=== PATIENT | male | born 1995 | race Caucasian/White ===

== ENCOUNTER 2016-12-19 18:28 | Inpatient (IN) | payer OTHER ==
[~2016-12-19] VITALS: Ht 170.1 cm; Wt 60.9 kg
[2016-12-19 18:34] VITALS: BP 111/70
[2016-12-19 19:38] LABS: BILIRUBIN NEGATIVE (NEGATIVE); BLOOD NEGATIVE (NEGATIVE); CLARITY CLEAR (CLEAR); COLOR YELLOW (YELLOW); GLUCOSE NEGATIVE (NEGATIVE); KETONE NEGATIVE (NEGATIVE); LEUKO ESTERASE NEGATIVE (NEGATIVE); NITRITE NEGATIVE (NEGATIVE); PROTEIN NEGATIVE (NEGATIVE); SPECIFIC GRAVITY 1.015 (1.005-1.030)
[2016-12-19 19:46] LABS: BASO % 0.2 % (0.0-1.0); EOS # 0.1 10*3/uL (0.0-0.4); EOS % 0.5 % (1.0-4.0); HEMATOCRIT 42.5 % (42.0-52.0); HEMOGLOBIN 14.4 g/dl (14.0-18.0); LYMPH # 3.4 10*3/uL (1.3-4.4); LYMPH % 25.8 % (27.0-41.0); MEAN CELL VOLUME 87.8 fl (80.0-94.0); MEAN CORPUSCULAR HGB 29.8 pg (27.0-31.0); MEAN CORPUSCULAR HGB CONC 33.9 g/dl (33.0-37.0); MEAN PLATELET VOLUME 9.1 fl (9.6-12.3); MONO # 0.7 10*3/uL (0.1-1.0); MONO % 5.7 % (3.0-9.0); NEUT # 8.8 10*3/uL (2.3-7.9); NEUT % 67.6 % (47.0-73.0); PLATELET COUNT AUTOMATED 278 10*3/uL (130-400); RED BLOOD COUNT 4.84 10*6/uL (4.50-5.90); RED CELL DISTRI WIDTH 12.5 % (0-14.5); WHITE BLOOD COUNT 13.1 10*3/uL (4.8-10.8)
[2016-12-19 20:00] VITALS: BP 120/63
[2016-12-19 20:02] LABS: ALBUMIN 3.6 gm/dl (3.1-4.5); ALKALINE PHOSPHATASE 95 U/L (45-117); BILIRUBIN, TOTAL 0.3 mg/dl (0.2-1.0); BUN 13 mg/dl (7-24); CARBON DIOXIDE 31 mmol/L (21-32); CHLORIDE 107 mmol/L (98-107); EST GLOM FILT AFRICAN AMERICAN > 60 ml/min; GLUCOSE 89 mg/dL (65-99); POTASSIUM 3.8 mmol/L (3.5-5.1); SGOT/AST 32 IU/L (3-35); SGPT/ALT 50 U/L (12-78); SODIUM 143 mmol/L (136-145); TOTAL PROTEIN 7.9 gm/dL (6.4-8.2)
[2016-12-19 20:04] LABS: URINE AMPHETAMINES < 1000 (1000ng/ml); URINE BARBITURATES < 200 (200ng/ml); URINE COCAINE < 300 (300ng/ml)
[2016-12-19 20:11] LABS: PROTHROMBIN TIME 11.1 SECONDS (9.0-12.4)
[2016-12-19 20:12] LABS: RBC 0-2 rbc/hpf (0-2); URINE REFLEX COMMENT NO (NO)
[2016-12-19 20:15] VITALS: BP 120/63
[2016-12-19 20:20] VITALS: BP 120/63
[2016-12-20] VITALS: BP 126/64
[2016-12-20 20:38] VITALS: BP 123/65
[2016-12-21 00:09] VITALS: BP 120/62
[2016-12-21 08:00] VITALS: BP 111/68
[2016-12-21 12:00] VITALS: BP 111/67
[2016-12-21 16:00] VITALS: BP 111/52
[2016-12-21 20:00] VITALS: BP 109/65
[2016-12-22] VITALS: BP 108/67
[2016-12-22 08:00] VITALS: BP 96/54
[2016-12-22] MEDS ORDERED: METHOCARBAMOL750 M1 PO (09:33)
[2016-12-22] MEDS ORDERED: ROPINIROLE HYD0.5 MG PO (09:33)
[2016-12-22] MEDS ORDERED: ATARAX,VISTARIL50 MG PO (09:33)
[2016-12-22 12:00] VITALS: BP 109/55
[2016-12-22 16:00] VITALS: BP 111/57
== END 2016-12-22 16:14 | disposition home or self-care (01) | DRG 897 ==
LOC: ED 18:28 → EDHOLD 19:04 → 4E 19:04
PROVIDERS: Student in an Organized Health Care Education/Training Program
DX: F11.10 Opioid abuse, uncomplicated (principal); D72.829 Elevated white blood cell count, unspecified; F12.10 Cannabis abuse, uncomplicated; F17.210 Nicotine dependence, cigarettes, uncomplicated; F41.9 Anxiety disorder, unspecified; Z71.6 Tobacco abuse counseling; Z82.49 Family history of ischemic heart disease and other diseases of the circulatory system